=== PATIENT | male | born 1990 | race Caucasian/White ===

== ENCOUNTER 2016-10-29 10:54 | Day surgery (SDC) | payer MEDICAID ==
[2016-10-29] MEDS ORDERED: LIDOCAINE 1% 2 ML INJ ONE (11:46)
[2016-10-29] MEDS ORDERED: LIDOCAINE 1% 5 ML SDV ID PRN (12:13)
[2016-10-29] MEDS ORDERED: LR 1,000 ML IV ONE (12:13)
[2016-10-29] MEDS ORDERED: PROPOFOL/EMULSION 500 MG/50 ML BOTTLE IV ONE (12:27)
--- NOTE | 2016-10-29 13:36 | GPN ---
[f rep st] PROCEDURE NOTE DATE OF PROCEDURE: 10/29/2016 PROCEDURE: Colonoscopy with biopsy. INDICATION: Mr. Walters is a 26-year-old male who presents with complaints of urgency, softer stools, as well as bright red blood per rectum. He presents for further evaluation. CONSENT: Risks, benefits, and alternatives of the procedure were discussed in great detail with the patient. Risk of infection, bleeding, perforation, and sedation were discussed. All questions answered. Informed consent was obtained. MEDICATIONS: Propofol. Please see anesthesia record for details. ESTIMATED BLOOD LOSS: None. COLONOSCOPIC EVALUATION: A rectal exam was performed and internal hemorrhoids were appreciated. The Olympus adult colonoscope was introduced into the rectum and advanced to the terminal ilium. The cecum was identified by the appendiceal orifice and ileocecal valve. The quality of the prep was good. Random biopsies were taken throughout the colon due to his change in bowel habits. No colon masses or polyps were seen. IMPRESSION: 1. Internal hemorrhoids. 2. Normal terminal ileum. 3. Normal colon, status post biopsy for microscopic colitis. RECOMMENDATIONS: 1. Await biopsy results. 2. Fiber supplementation. 3. Continue peppermint oil. 4. Advance diet. 5. Follow up in the office in 6 weeks. /[id number]/MODL MTDD
== END 2016-10-29 13:53 | disposition home or self-care (01) ==
LOC: FSGY 10:54 → EEVIPCON 12:15 → FSGY 13:53
PROVIDERS: ATTEND Internal Medicine Gastroenterology
PROC: 0DBE8ZX Excision of Large Intestine, Via Natural or Artificial Opening Endoscopic, Diagnostic (ICD-10-PCS; principal; 2016-10-29 12:15)
DX: R15.2 Fecal urgency (principal); R19.4 Change in bowel habit; K64.8 Other hemorrhoids; K62.5 Hemorrhage of anus and rectum
CPT/HCPCS: J2704